=== PATIENT | female | born 1945 | race African-American/Black ===

== ENCOUNTER 2018-07-19 19:47 | Emergency (ER) | payer BC ==
[~2018-07-19] VITALS: Ht 165.1 cm; Wt 75.0 kg
[2018-07-19] MEDS ORDERED: ALBUTEROL (0.083%) 2.5MG/3ML NEB HHN STA (22:26)
[2018-07-19] MEDS ORDERED: IPRATROPIUM BROMIDE (0.02%) 0.5MG/2.5ML NEB HHN STA (22:26)
[2018-07-19] MEDS ORDERED: PREDNISONE 20MG TABLET PO STA (22:26)
[2018-07-20 01:39] VITALS: BP 112/59
== END 2018-07-20 01:44 | disposition home or self-care (01) ==
LOC: ER 19:47
DX: J45.901 Unspecified asthma with (acute) exacerbation (principal); Z90.710 Acquired absence of both cervix and uterus; Z95.0 Presence of cardiac pacemaker; Z98.890 Other specified postprocedural states; Z88.0 Allergy status to penicillin; Z95.5 Presence of coronary angioplasty implant and graft
CPT/HCPCS: 71045; 93005; 94640; 99283; J7512; J7611

== ENCOUNTER 2019-01-05 12:28 | Inpatient (IN) | payer BC ==
[~2019-01-05] VITALS: Ht 166.4 cm; Wt 74.1 kg
[2019-01-05 13:44] LABS: BASOPHILS % 1.2 % (0.0-2.0); EOSINOPHILS % 0.3 % (0.0-5.0); HEMATOCRIT. 46.6 % (36.0-48.0); HEMOGLOBIN. 15.3 g/dL (12.0-16.0); MEAN CORPUSCULAR HEMOGLOBIN 28.7 pg (28.0-32.0); MEAN CORPUSCULAR VOLUME 87.2 fL (81.0-99.0); MEAN PLATELET VOLUME 7.9 fl (7.4-10.4); MONOCYTES % 7.5 % (2.0-8.0); PLATELET 237 x1000/uL (130-400); RED BLOOD CELL COUNT 5.35 mill/uL (4.2-5.4)
[2019-01-05 13:56] LABS: CHLORIDE 103 mEq/L (98-107)
[2019-01-05 14:05] LABS: T4 FREE 1.24 ng/dL (0.76-1.46)
[2019-01-05 14:25] LABS: CLARITY URINE CLEAR (CLEAR); COLOR URINE YELLOW (YELLOW); KETONES URINE 1+ (NEGATIVE); LEUKOCYTE ESTERASE URINE TRACE (NEGATIVE); NITRITE URINE NEGATIVE (NEGATIVE); OCCULT BLOOD URINE NEGATIVE (NEGATIVE); PH URINE 7.5 (4.5-8.0); PROTEIN URINE NEGATIVE (NEGATIVE); SPECIFIC GRAVITY URINE 1.009 (1.005-1.030)
[2019-01-05] MEDS ORDERED: SULFAMETHOXAZOLE/TRIMETHOPRIM 800/160MG TABLET PO ONE (15:00)
[2019-01-05] MEDS ORDERED: ASPIRIN 325MG EC TABLET PO ONE (16:30)
[2019-01-05 20:15] VITALS: BP 91/61
[2019-01-05] MEDS ORDERED: HYDR200T80 PO (21:00)
[2019-01-05] MEDS ORDERED: METO-539 PO (21:00)
[2019-01-05] MEDS ORDERED: ASPI-1393 PO (21:00)
[2019-01-05] MEDS ORDERED: IPRATROPIUM/ALBUTEROL 0.5-3(2.5)MG/3ML NEB INH PRN (21:15)
[2019-01-05] MEDS ORDERED: MAGNESIUM/ALUMINUM HYDROXIDE/SIMETHICONE 30ML UDC PO PRN (21:15)
[2019-01-05] MEDS ORDERED: MAGNESIUM HYDROXIDE 400MG/5ML 30ML UDC PO PRN (21:15)
[2019-01-05] MEDS ORDERED: LORAZEPAM 0.5MG TABLET PO PRN (21:15)
[2019-01-05] MEDS ORDERED: DIPHENHYDRAMINE 50MG/ML VIAL IV PRN (21:15)
[2019-01-05] MEDS ORDERED: ACETAMINOPHEN 325MG TABLET PO PRN (21:15)
[2019-01-05] MEDS ORDERED: TEMAZEPAM 15MG CAPSULE PO PRN (21:15)
[2019-01-05] MEDS ORDERED: GUAIFENESIN 200MG/10ML SUGAR FREE UDC PO PRN (21:15)
[2019-01-05] MEDS ORDERED: ONDANSETRON HCL 4MG/2ML INJ IV PRN (21:15)
[2019-01-05] MEDS: SODIUM CHLORIDE 0.9% INJ 3ML FLUSH IVF SCH (21:38)
[2019-01-05 22:00] VITALS: BP 146/65
[2019-01-06] VITALS (12 sets, daily range): BP systolic 104–137; BP diastolic 53–90
[2019-01-06] MEDS: SODIUM CHLORIDE 0.9% INJ 3ML FLUSH IVF SCH ×3 (06:25→21:43)
[2019-01-06] MEDS: HYDROXYCHLOROQUINE SULFATE 200MG TABLET PO SCH (08:29)
[2019-01-06] MEDS: ENOXAPARIN 40MG/0.4ML SYR SUBCUT SCH (08:29)
[2019-01-06] MEDS: ASPIRIN 81MG EC TABLET PO SCH (10:25)
[2019-01-07] VITALS (10 sets, daily range): BP systolic 115–152; BP diastolic 60–94
[2019-01-07] MEDS: SODIUM CHLORIDE 0.9% INJ 3ML FLUSH IVF SCH ×2 (05:02→14:00)
[2019-01-07 06:43] LABS: BASOPHILS % 1.2 % (0.0-2.0); EOSINOPHILS % 1.5 % (0.0-5.0); HEMATOCRIT. 45.9 % (36.0-48.0); HEMOGLOBIN. 15.3 g/dL (12.0-16.0); LYMPHOCYTES % 54.4 % (20.0-50.0); MEAN CORPUSCULAR HEMOGLOBIN 29.4 pg (28.0-32.0); MEAN CORPUSCULAR VOLUME 88.1 fL (81.0-99.0); MEAN PLATELET VOLUME 7.9 fl (7.4-10.4); NEUTROPHILS % 36.9 % (40.0-76.0); PLATELET 226 x1000/uL (130-400); RED BLOOD CELL COUNT 5.21 mill/uL (4.2-5.4); RED CELL DISTRIBUTION WIDTH 14.3 % (11.6-14.6)
[2019-01-07 07:12] LABS: CHLORIDE 106 mEq/L (98-107)
[2019-01-07] MEDS: ASPIRIN 81MG EC TABLET PO SCH (08:17)
[2019-01-07] MEDS: ENOXAPARIN 40MG/0.4ML SYR SUBCUT SCH (08:17)
[2019-01-07] MEDS: HYDROXYCHLOROQUINE SULFATE 200MG TABLET PO SCH (08:17)
== END 2019-01-07 17:10 | disposition home or self-care (01) | DRG 309 ==
LOC: ER 14:40 → 3WST 16:21 → EDBEDREQ 16:25 → ENRESERV 19:08
PROVIDERS: ADMIT Internal Medicine; ATTEND Internal Medicine
PROC: 4B02XTZ Measurement of Cardiac Defibrillator, External Approach (ICD-10-PCS; principal; 2019-01-05)
DX: I47.1 Supraventricular tachycardia (principal); N39.0 Urinary tract infection, site not specified; I42.1 Obstructive hypertrophic cardiomyopathy; I11.0 Hypertensive heart disease with heart failure; I50.9 Heart failure, unspecified; E03.9 Hypothyroidism, unspecified; J44.9 Chronic obstructive pulmonary disease, unspecified; M06.9 Rheumatoid arthritis, unspecified; Z82.49 Family history of ischemic heart disease and other diseases of the circulatory system; Z83.3 Family history of diabetes mellitus; Z85.038 Personal history of other malignant neoplasm of large intestine; Z90.49 Acquired absence of other specified parts of digestive tract; Z90.710 Acquired absence of both cervix and uterus; Z95.810 Presence of automatic (implantable) cardiac defibrillator; Z88.0 Allergy status to penicillin; Z79.82 Long term (current) use of aspirin
CPT/HCPCS: 36415; 71045; 80048; 83735; 83880; 84439; 84443; 84481; 84484; 93005; 93306; 93970; J1650

== ENCOUNTER 2020-10-25 15:23 | Emergency (ER) | payer BC ==
[~2020-10-25] VITALS: Ht 167.6 cm; Wt 80.0 kg
[~2020-10-25 15:23] MED LIST: ASPI-1497 PO; HYDR200T80 PO; METO-539 PO
[2020-10-25 16:27] LABS: BASOPHILS % 0.9 % (0.0-2.0); HEMATOCRIT. 39.9 % (36.0-48.0); HEMOGLOBIN. 13.2 g/dL (12.0-16.0); LYMPHOCYTES % 46.7 % (20.0-50.0); MEAN CORPUSCULAR HEMOGLOBIN 29.3 pg (28.0-32.0); MEAN CORPUSCULAR VOLUME 88.7 fL (81.0-99.0); MEAN PLATELET VOLUME 7.4 fl (7.4-10.4); MONOCYTES % 9.6 % (2.0-8.0); NEUTROPHILS % 41.8 % (40.0-76.0); PLATELET 274 x1000/uL (130-400); RED CELL DISTRIBUTION WIDTH 13.4 % (11.6-14.6)
[2020-10-25 16:33] LABS: CHLORIDE 109 mEq/L (98-107)
[2020-10-25 18:15] VITALS: BP 158/70
== END 2020-10-25 18:39 | disposition home or self-care (01) ==
LOC: ER 15:23
DX: I50.9 Heart failure, unspecified (principal); Z88.0 Allergy status to penicillin; Z79.82 Long term (current) use of aspirin; Z79.899 Other long term (current) drug therapy; Z95.810 Presence of automatic (implantable) cardiac defibrillator
CPT/HCPCS: 36415; 71045; 80053; 83735; 83880; 84484; 85025; 93005; 99285

== ENCOUNTER → 2023-09-13 | Outpatient (CLI) | payer BC | END | disposition home or self-care (01) | LOC: RAD 11:20 | PROVIDERS: ATTEND Specialist | DX: J18.9 Pneumonia, unspecified organism (principal) | CPT/HCPCS: 71046 ==